=== PATIENT | male | born 1965 | race Caucasian/White ===

== ENCOUNTER 2016-07-12 06:27 | Day surgery (SDC) | payer OTHER ==
[2016-07-12] MEDS ORDERED: Lactated Ringers 1,000 ML IV SCH (07:00)
[2016-07-12] MEDS ORDERED: Propofol 200 MG/20 ML SDV ONE (07:18)
[2016-07-12] MEDS ORDERED: fentaNYL 100 MCG/2 ML SDV ONE (07:18)
[2016-07-12] MEDS ORDERED: Midazolam 1 MG/ML 2 ML SDV ONE (07:19)
--- NOTE | 2016-07-12 07:25 | PCM.PREANE ---
Preanesthetic Assessment - Anesthesia/Transfusion/Family Hx Anesthesia History: Prior Anesthesia Without Reaction Other Type of Anesthesia Reaction Comment: Denies any known problem in past Family History of Anesthesia Reaction: No Transfusion History: No Prior Transfusion(s) - Review of Systems General: No Symptoms Pulmonary: No Symptoms Cardiovascular: No Symptoms Gastrointestinal: No symptoms Neurological: No Symptoms Other: Reports: None - Physical Assessment NPO Status Date: 07/11/16 O2 Sat by Pulse Oximetry: 93 Respiratory Rate: 18 Vital Signs: Last Vital Signs Temp 36.4 C 07/12/16 06:42 Pulse 106 H 07/12/16 06:42 Resp 18 07/12/16 06:42 BP 139/96 H 07/12/16 06:42 Pulse Ox 93 L 07/12/16 06:42 Height: 1.7 m Weight: 113.398 kg ASA Class: 3 Mental Status: Alert & Oriented x3 Airway Class: Mallampati = 2 Dentition: Reports: Normal Dentition ROM/Head Extension: Full Lungs: Clear to auscultation, Normal respiratory effort Cardiovascular: Regular Rate, Regular Rhythm - Lab Values: Laboratory Last Values POC Glucose 159 mg/dL (60-110) H 07/12/16 06:56 - Allergies Allergies/Adverse Reactions: Allergies Allergy/AdvReac Type Severity Reaction Status Date / Time adhesive tape Allergy Rash Verified 07/09/16 16:40 lisinopril Allergy Cough Verified 07/09/16 16:40 losartan Allergy Cannot Verified 07/09/16 16:40 Remember rabeprazole Allergy Nausea Verified 07/09/16 16:40 - Anesthesia Plan Pre-Op Medication Ordered: None Med Last Dose Date: 07/11/16 Med Last Dose Time: 08:00 - Acknowledgements Anesthesia Type Planned: MAC Pt an Appropriate Candidate for the Planned Anesthesia: Yes Alternatives and Risks of Anesthesia Discussed w Pt/Guardian: Yes Pt/Guardian Understands and Agrees with Anesthesia Plan: Yes PreAnesthesia Questionnaire HEENT History: Reports: Allergic rhinitis, Hard of hearing Other HEENT History: wears glasses/contacts, sinus surgery x 4 Cardiovascular History: Reports: High cholesterol, Hypertension Respiratory History: Reports: Asthma, COPD Other Respiratory History: cough variant asthma, Gastrointestinal History: Reports: GERD, Inflammatory bowel disease Other Gastrointestinal History: hx of ulcerative colitis, controlled on oral meds, no surgeries. Genitourinary History: Reports: BPH Musculoskeletal History: Reports: None Neurological History: Reports: Migraines (migraines inactive recently) Psychiatric History: Reports: None Endocrine/Metabolic History: Reports: Diabetes, type II (glucose this am =159), Obesity/BMI 30+ Hematologic History: Reports: None Immunologic History: Reports: None Oncologic (Cancer) History: Reports: None Dermatologic History: Reports: None - Past Surgical History Head Surgeries/Procedures: Reports: None HEENT Surgical History: Reports: Naso-sinus surgery Other HEENT Surgeries/Procedures: hx of fx nose Cardiovascular Surgical History: Reports: None Respiratory Surgical History: Reports: None GI Surgical History: Reports: Colonoscopy Male Surgical History: Reports: None Endocrine Surgical History: Reports: None Neurological Surgical History: Reports: None Musculoskeletal Surgical History: Reports: None Oncologic Surgical History: Reports: None - SUBSTANCE USE Smoking Status *Q: Never Smoker Tobacco Use Within Last Twelve Months: No Days Per Week of Alcohol Use: 0 Number of Drinks Per Day: 0 Total Drinks Per Week: 0 Recreational Drug Use History: No - HOME MEDS Home Medications: Home Meds Albuterol [Proair HFA] 2 puff INH Q4HR PRN 04/29/14 [History] Budesonide/Formoterol [Symbicort 160-4.5 MCG] 2 puff INH BID 04/29/14 [History] Esomeprazole [NexIUM] 20 mg PO DAILY 04/29/14 [History] Metoprolol Succinate [Toprol XL] 0.5 tab PO BRK 04/29/14 [History] Terazosin HCl [Terazosin] 6 mg PO BEDTIME 04/29/14 [History] Testosterone Cypionate 200 mg IM ASDIRECTED 04/29/14 [History] amLODIPine [Norvasc] 5 mg PO BRK 04/29/14 [History] atorvaSTATin Calcium [Atorvastatin Calcium] 20 tab PO DAILY 04/29/14 [History] metFORMIN HCl [Fortamet] 1 tab PO BIDM 04/29/14 [History] sulfaSALAzine 2 tab PO TID 04/29/14 [History] Cetirizine [ZyrTEC] 10 mg PO DAILY 07/09/16 [History] Montelukast [Singulair] 10 mg PO BEDTIME 07/09/16 [History] Saxagliptin HCl [Onglyza] 5 mg PO DAILY 07/09/16 [History] Sildenafil [Viagra] 100 mg PO ASDIRECTED PRN 07/09/16 [History] - CURRENT (IN HOUSE) MEDS Current Meds: Current Medications Hydrocodone Bitart/Acetaminophen ([place] 325-5 Mg) 1 tab PO Q4H PRN PRN Reason: Pain Bupivacaine HCl/Epinephrine Bitart (Marcaine 0.25%/Epinephrine 1:200,000) 10 ml INJECT ONETIME ONE Stop: 07/12/16 08:01 Lactated Ringer's (Ringers, Lactated) 1,000 mls @ 125 mls/hr IV ASDIRECTED [facility] Last Admin: 07/12/16 06:41 Dose: 125 mls/hr Cefazolin Sodium/Dextrose 2 gm (/ Premix) 50 mls @ 100 mls/hr IV ONETIME ONE Stop: 07/12/16 07:59 Tobramycin/Dexamethasone (Tobradex Ophth Oint) 1 gm EYEBOTH Q4H [facility] Preanesthetic Assessment - ANESTHESIA/TRANSFUSION/FAMILY HX Anesthesia/Transfusion History: Prior Anesthesia Other Type of Anesthesia Reaction Comment: Denies any known problem in past Family History of Anesthesia Reaction: No Intubation History: Unknown - PHYSICAL ASSESSMENT O2 Sat by Pulse Oximetry: 93 RR: 18 Vital Signs: Last Vital Signs Temp 36.4 C 07/12/16 06:42 Pulse 106 H 07/12/16 06:42 Resp 18 07/12/16 06:42 BP 139/96 H 07/12/16 06:42 Pulse Ox 93 L 07/12/16 06:42 Height: 1.7 m Weight: 113.398 kg - LAB Values: Laboratory Last Values POC Glucose 159 mg/dL (60-110) H 07/12/16 06:56 - ALLERGIES Allergies/Adverse Reactions: Allergies Allergy/AdvReac Type Severity Reaction Status Date / Time adhesive tape Allergy Rash Verified 07/09/16 16:40 lisinopril Allergy Cough Verified 07/09/16 16:40 losartan Allergy Cannot Verified 07/09/16 16:40 Remember rabeprazole Allergy Nausea Verified 07/09/16 16:40
[2016-07-12] MEDS ORDERED: ceFAZolin 2 GM in Premix Bag 1 BAG IV ONE (07:30)
[2016-07-12] MEDS ORDERED: Bupivacaine 0.25%/EPINEPHrine 1:200,000 10 ML SDV ONE (07:33)
[2016-07-12] MEDS ORDERED: Dexamethasone/Tobramycin 0.1-0.3% Ophth Oint 3.5 GM Tube ONE (07:33)
[2016-07-12] MEDS ORDERED: Dexamethasone/Tobramycin 0.1-0.3% Ophth Oint 3.5 GM Tube EYEBOTH SCH (08:00)
[2016-07-12] MEDS ORDERED: Bupivacaine 0.25%/EPINEPHrine 1:200,000 10 ML SDV INJECT ONE (08:00)
[2016-07-12] MEDS ORDERED: Acetaminophen/HYDROcodone 325-5 MG Tab PO PRN (08:00)
[2016-07-12 09:17] VITALS: BP 147/95
--- NOTE | 2016-07-12 10:28 | PCM48HPAN ---
Post Anesthesia Note - EVALUATION WITHIN 48HRS OF ANESTHETIC Vital Signs in Normal Range: Yes Patient Participated in Evaluation: Yes Respiratory Function Stable: Yes Airway Patent: Yes Cardiovascular Function Stable: Yes Hydration Status Stable: Yes Pain Control Satisfactory: Yes Nausea and Vomiting Control Satisfactory: Yes Mental Status Recovered: Yes
--- NOTE | 2016-07-12 10:28 | PCM.POSTAN ---
POST ANESTHESIA ASSESSMENT - MENTAL STATUS Mental Status: alert, oriented - RESPIRATORY Respiratory Status: respiratory rate WNL, airway patent - CARDIOVASCULAR CV Status: pulse rate WNL, blood pressure stable - GASTROINTESTINAL GI Status: no symptoms - POST OP HYDRATION Hydration Status: adequate & stable
--- NOTE | 2016-07-12 15:43 | PCM.OPNOTE ---
- General Post-Op/Procedure Note Date of Surgery/Procedure: 07/12/16 Operative Procedure(s): bilateral upper lid blepharoplasty for excess skin weighing down lids Pre Op Diagnosis: bilateral upper lid skin weighing down lids Post-Op Diagnosis: bilateral upper lid skin weighing down lids Anesthesia Technique: Local, MAC Primary Surgeon: Aarti Null Supervisor Cell Maintenance: Eduarda Lozano Complications: None Condition: Good Free Text/Narrative:: [id number]
--- NOTE | 2016-07-12 21:21 | OR ---
SURGEON: LUCY CRUZ MD POLYMER CHEMIST: Eduarda Lozano, NURY DATE OF PROCEDURE: 07/12/2016 PREOPERATIVE DIAGNOSIS: Bilateral upper eyelid excess skin weighing down lids. POSTOPERATIVE DIAGNOSIS: Bilateral upper eyelid excess skin weighing down lids. PROCEDURE: Bilateral upper lid blepharoplasty for excess skin weighing down lids. INDICATIONS: Mr. Hinton is a 50-year-old gentleman seen today for bilateral upper lid blepharoplasties for excess skin weighing down lids. Risks and benefits of this were discussed with him and he is in agreement to proceed. Risks were including, but not limited to, bleeding, infection, damage to underlying or overlying structures, possible need for future interventions, and possible scarring. PROCEDURE IN DETAIL: After informed consent was obtained and placed on the chart, the patient was brought to the operating theater and laid in the supine position. After adequate local MAC anesthetic was obtained, the area was marked and local was infiltrated into the area for anesthesia. Once adequately infiltrated, attention was then paid to dissection of the excess skin as marked and meticulous hemostasis using Bovie electrocautery. Once adequately removed, the skin edges were reapproximated. The patient opened his eyes and symmetry was appreciated. The wounds were then closed using a sparse deep 5-0 Monocryl sutures for deep dermal stitches and running 6-0 Prolene for the skin. These were Steri-Stripped in place. The patient was washed and transferred to the PACU in stable condition. The patient tolerated the procedure well. All counts of needles were correct at the end the case. FOLLOW UP: He will see us back in one week, sooner with any issues or concerns. HEGGTTIFFANY / SAHYE /[id number] IRIS
== END 2016-07-12 09:30 | disposition home or self-care (01) ==
LOC: MW.SDS 06:27
PROVIDERS: ATTEND Plastic Surgery
DX: H02.34 Blepharochalasis left upper eyelid (principal); H02.31 Blepharochalasis right upper eyelid; I10 Essential (primary) hypertension; E78.00 Pure hypercholesterolemia, unspecified; J45.909 Unspecified asthma, uncomplicated; K21.9 Gastro-esophageal reflux disease without esophagitis; N40.0 Benign prostatic hyperplasia without lower urinary tract symptoms; Z88.8 Allergy status to other drugs, medicaments and biological substances; Z91.09 Other allergy status, other than to drugs and biological substances; E11.9 Type 2 diabetes mellitus without complications; E66.9 Obesity, unspecified; Z98.890 Other specified postprocedural states; Z79.899 Other long term (current) drug therapy; Z79.84 Long term (current) use of oral hypoglycemic drugs
CPT/HCPCS: 15823; 82962; A9270; J2250; J3010; J7120; 00103; J2704

== ENCOUNTER 2016-12-20 09:00 | Day surgery (SDC) | payer OTHER ==
[~2016-12-20 09:00] MED LIST: Acetaminophen/HYDROcodone 325-5 MG Tab PO PRN; Bupivacaine 0.25%/EPINEPHrine 1:200,000 10 ML SDV INJECT ONE; Lactated Ringers 1,000 ML IV SCH; ceFAZolin 2 GM in Premix Bag 1 BAG IV ONE
[2016-12-20] MEDS ORDERED: Lidocaine 2% 5 ML SDV ONE (09:02)
[2016-12-20] MEDS ORDERED: Propofol 200 MG/20 ML SDV ONE (09:03)
[2016-12-20] MEDS ORDERED: fentaNYL 100 MCG/2 ML SDV ONE (09:03)
[2016-12-20] MEDS ORDERED: Midazolam 1 MG/ML 2 ML SDV ONE (09:03)
[2016-12-20] MEDS ORDERED: Ketorolac 30 MG/ML SDV ONE (09:04)
[2016-12-20] MEDS ORDERED: Ondansetron 4 MG/2 ML SDV ONE (09:04)
[2016-12-20] MEDS ORDERED: Bupivacaine 25%/EPINEPHrine/PF 30 ML ONE (09:06)
--- NOTE | 2016-12-20 09:26 | PCM.PREANE ---
Preanesthetic Assessment - Anesthesia/Transfusion/Family Hx Anesthesia History: Prior Anesthesia Without Reaction Other Type of Anesthesia Reaction Comment: Denies any known problem in past Family History of Anesthesia Reaction: No Transfusion History: No Prior Transfusion(s) - Review of Systems General: No Symptoms Pulmonary: No Symptoms Cardiovascular: No Symptoms Gastrointestinal: No Symptoms Neurological: No Symptoms Other: Reports: None - Physical Assessment NPO Status Date: 12/19/16 Height: 1.7 m Weight: 113.398 kg ASA Class: 3 Mental Status: Alert & Oriented x3 Airway Class: Mallampati = 2 Dentition: Reports: Normal Dentition ROM/Head Extension: Full Lungs: Clear to Auscultation, Normal Respiratory Effort Cardiovascular: Regular Rate, Regular Rhythm - Allergies Allergies/Adverse Reactions: Allergies Allergy/AdvReac Type Severity Reaction Status Date / Time adhesive tape Allergy Rash Verified 07/09/16 16:40 lisinopril Allergy Cough Verified 07/09/16 16:40 losartan Allergy Cannot Verified 07/09/16 16:40 Remember rabeprazole Allergy Nausea Verified 07/09/16 16:40 - Anesthesia Plan Pre-Op Medication Ordered: None - Acknowledgements Anesthesia Type Planned: General Anesthesia Pt an Appropriate Candidate for the Planned Anesthesia: Yes Alternatives and Risks of Anesthesia Discussed w Pt/Guardian: Yes Pt/Guardian Understands and Agrees with Anesthesia Plan: Yes Additional Comments: pmh: nicole, dm2, RAD, BPH, htn, hld, ulc colitis, migraine PreAnesthesia Questionnaire HEENT History: Reports: Allergic Rhinitis, Hard of Hearing, Impaired Vision Other HEENT History: wears glasses/contacts, sinus surgery x 4, lele hearing aids , Cardiovascular History: Reports: High Cholesterol, Hypertension Respiratory History: Reports: Asthma, COPD, Sleep Apnea Other Respiratory History: dose not have CPAP Gastrointestinal History: Reports: Chronic Diarrhea, GERD, Inflammatory Bowel Disease Other Gastrointestinal History: hx of ulcerative colitis, Genitourinary History: Reports: BPH Musculoskeletal History: Reports: Arthritis Neurological History: Reports: Migraines Psychiatric History: Reports: None Endocrine/Metabolic History: Reports: Diabetes, Type II, Obesity/BMI 30+ Hematologic History: Reports: None Immunologic History: Reports: None Oncologic (Cancer) History: Reports: None Dermatologic History: Reports: None - Past Surgical History Head Surgeries/Procedures: Reports: None HEENT Surgical History: Reports: Naso-Sinus Surgery Other HEENT Surgeries/Procedures: hx of fx nose Cardiovascular Surgical History: Reports: None Respiratory Surgical History: Reports: None GI Surgical History: Reports: Colonoscopy Male Surgical History: Reports: None Endocrine Surgical History: Reports: None Neurological Surgical History: Reports: None Musculoskeletal Surgical History: Reports: Arthroscopic Knee Oncologic Surgical History: Reports: None Dermatological Surgical History: Reports: Plastic Surgical Reconstruction/Repair - SUBSTANCE USE Smoking Status *Q: Never Smoker Tobacco Use Within Last Twelve Months: No Days Per Week of Alcohol Use: 0 Number of Drinks Per Day: 0 Total Drinks Per Week: 0 Recreational Drug Use History: No - HOME MEDS Home Medications: Home Meds Albuterol [Proair HFA] 2 puff INH Q4HR PRN 04/29/14 [History] Budesonide/Formoterol [Symbicort 160-4.5 MCG] 2 puff INH BID 04/29/14 [History] Metoprolol Succinate [Toprol XL] 0.5 tab PO BRK 04/29/14 [History] Terazosin HCl [Terazosin] 6 mg PO BEDTIME 04/29/14 [History] Testosterone Cypionate 1.5 ml IM ASDIRECTED 04/29/14 [History] amLODIPine [Norvasc] 10 mg PO BRK 04/29/14 [History] metFORMIN HCl [Fortamet] 1,000 mg PO BIDM 04/29/14 [History] sulfaSALAzine 2 tab PO TID 04/29/14 [History] Sildenafil [Viagra] 100 mg PO ASDIRECTED PRN 07/09/16 [History] Albuterol [Proventil Neb Soln] 1 inh NEB ASDIRECTED PRN 12/18/16 [History] Cholecalciferol (Vitamin D3) [Vitamin D3] 1,000 units PO DAILY 12/18/16 [History ] Diclofenac Sodium [Voltaren] 1 applic TOP ASDIRECTED PRN 12/18/16 [History] Esomeprazole Magnesium [Nexium] 20 mg PO DAILY 12/18/16 [History] Gemfibrozil 600 mg PO BID 12/18/16 [History] Loratadine 10 mg PO DAILY 12/18/16 [History] Omeprazole 20 mg PO BID 12/18/16 [History] Saxagliptin HCl [Onglyza] 5 mg PO ASDIRECTED 12/18/16 [History] atorvaSTATin [Lipitor] 40 mg PO DAILY 12/18/16 [History] - CURRENT (IN HOUSE) MEDS Current Meds: Current Medications Hydrocodone Bitart/Acetaminophen ([place] 325-5 Mg) 1 tab PO Q4H PRN PRN Reason: Pain Cefazolin Sodium/Dextrose 2 gm (/ Premix) 50 mls @ 100 mls/hr IV ONETIME ONE Stop: 12/20/16 09:29 Lactated Ringer's (Ringers, Lactated) 1,000 mls @ 125 mls/hr IV ASDIRECTED [facility] Discontinued Medications Bupivacaine HCl/Epinephrine Bitart ([place] 0.25%/Epinephrine 1:200,000) 20 ml INJECT ONETIME ONE Stop: 12/20/16 08:01 Fentanyl (Sublimaze) Confirm Administered Dose 200 mcg .ROUTE .STK-MED ONE Stop: 12/20/16 09:04 Bupivacaine HCl/Epinephrine Bitart (Sensorc Mpf 0.25%-Epi 1:[id number]) Confirm Administered Dose 30 mls @ as directed .ROUTE .STK-MED ONE Stop: 12/20/16 09:07 Ketorolac Tromethamine (Toradol) Confirm Administered Dose 30 mg .ROUTE .STK- MED ONE Stop: 12/20/16 09:05 Lidocaine (Xylocaine-Mpf 2%) Confirm Administered Dose 10 ml .ROUTE .STK-MED ONE Stop: 12/20/16 09:03 Midazolam HCl (Versed 1 Mg/Ml) Confirm Administered Dose 2 mg .ROUTE .STK-MED ONE Stop: 12/20/16 09:04 Ondansetron HCl (Zofran) Confirm Administered Dose 4 mg .ROUTE .STK-MED ONE Stop: 12/20/16 09:05 Propofol (Diprivan 20 Ml) Confirm Administered Dose 400 mg .ROUTE .STK-MED ONE Stop: 12/20/16 09:04
[2016-12-20] MEDS ORDERED: fentaNYL 100 MCG/2 ML SDV IVPUSH PRN (12:13)
--- NOTE | 2016-12-20 12:50 | PCM.POSTAN ---
POST ANESTHESIA ASSESSMENT - MENTAL STATUS Mental Status: Alert, Oriented - RESPIRATORY Respiratory Status: Respiratory Rate WNL, Airway Patent, O2 Saturation Stable - CARDIOVASCULAR CV Status: Pulse Rate WNL, Blood Pressure Stable - GASTROINTESTINAL GI Status: No Symptoms - POST OP HYDRATION Hydration Status: Adequate & Stable
[2016-12-20 16:00] VITALS: BP 177/82
--- NOTE | 2016-12-24 08:28 | PCM.OPNOTE ---
- General Post-Op/Procedure Note Date of Surgery/Procedure: 12/20/16 Operative Procedure(s): bilateral cubital tunnel release at the elbow Pre Op Diagnosis: bilateral cubital tunnel syndrome Post-Op Diagnosis: Same Anesthesia Technique: General LMA, Local Primary Surgeon: Aarti Null Bridge Manager: Eduarda Lozano Complications: None Condition: Good Free Text/Narrative:: [id number]
--- NOTE | 2016-12-24 12:13 | OR ---
SURGEON: LUCY CRUZ MD DATE OF PROCEDURE: 12/20/2016 PREOPERATIVE DIAGNOSIS: Bilateral cubital tunnel syndrome. POSTOPERATIVE DIAGNOSIS: Bilateral cubital tunnel syndrome. PROCEDURE: Bilateral cubital tunnel release at the elbow. WOOD STAINER: POOL Zaman. ANESTHESIA: General LMA with local. INDICATION: The patient is seen today in evaluation for bilateral cubital tunnel release. He has EMG proven these. He continues to have weakness of the hand and complaints of pain in the area. Risks and benefits were discussed with him for release and he was in agreement to proceed. Risks were including, but not limited to, bleeding, infection, damage to underlying or overlying structures, possible need for future interventions and possible scarring. PROCEDURE IN DETAIL: After informed consent was obtained and placed on the chart, the patient was brought to the operating theater and laid in the supine position. After adequate general anesthetic was obtained, the area was prepped and draped and a time-out was completed to confirm side and site. Attention was then paid to exsanguination of the arm and the tourniquet was insufflated to 200 mmHg. Once this was completed, the area had been anesthetized with local anesthesia and a 15 blade was used to dissect through the skin and subcutaneous tissue with scissor spreading to protect any cutaneous nerves. The cubital tunnel was directly visualized the nerve entering it. Dissection was carried around the nerve itself and a Neeses elevator was used to protect the nerve. Scissor dissection was used to free up the fascial layer superior to the nerve. Dissection was first carried proximally up into the upper arm in order to release any fascial muscular compression. This was done under direct visualization using [place] retractors and a scissor. Once completed, dissection was carried distally through the cubital tunnel and later through the flexor carpi ulnaris heads. This was split layer by layer in order to expose and free up the underlying nerve. Once this was adequately completed, attention was then paid to deflation of the tourniquet and meticulous hemostasis. The area was copiously irrigated and once adequate hemostasis, the wound was closed with deep 3-0 Monocryl stitches and a running 4-0 subcuticular for the skin. The patient tolerated this well. All counts and needles were correct at the end of the case and a mirror image procedure had been completed on the opposite side. The wounds were then dressed with Steri-Strips, fluffs, and an Tee wrap. The patient tolerated this well. FOLLOWUP INSTRUCTIONS: The patient was given a prescription for pain control. He will see us in clinic in approximately 10 days or sooner if any problems, questions, or concerns. VITA / SHAYE /[id number]
== END 2016-12-20 14:00 | disposition home or self-care (01) ==
LOC: MW.SDS 09:00
PROVIDERS: ATTEND Plastic Surgery
PROC: 01N40ZZ Release Ulnar Nerve, Open Approach (ICD-10-PCS; principal; 2016-12-20)
DX: G56.23 Lesion of ulnar nerve, bilateral upper limbs (principal); J30.9 Allergic rhinitis, unspecified; M19.90 Unspecified osteoarthritis, unspecified site; J45.909 Unspecified asthma, uncomplicated; N40.0 Benign prostatic hyperplasia without lower urinary tract symptoms; E11.9 Type 2 diabetes mellitus without complications; K21.9 Gastro-esophageal reflux disease without esophagitis; E78.00 Pure hypercholesterolemia, unspecified; I10 Essential (primary) hypertension; G43.909 Migraine, unspecified, not intractable, without status migrainosus; Z88.8 Allergy status to other drugs, medicaments and biological substances; Z79.899 Other long term (current) drug therapy; Z79.84 Long term (current) use of oral hypoglycemic drugs; Z79.51 Long term (current) use of inhaled steroids; Z98.890 Other specified postprocedural states
CPT/HCPCS: 64718; 82962; J1885; J2250; J2405; J3010; J7120; 01810; J2704